=== PATIENT | female | born 1985 | race Caucasian/White ===

== ENCOUNTER 2017-03-23 11:51 | Emergency (ER) | payer MEDICAID ==
[~2017-03-23] VITALS: Ht 170.2 cm; Wt 84.1 kg
[~2017-03-23 11:51] MED LIST: AMOXICILLIN 50500 MG PO; AMOXICILLIN 8751 TAB PO; AMOXICILLIN875 MG PO; CEPHALEXIN500 M1 PO; CLEOCIN HC150 MG/CAP PO; CYMBALTA 60MG60 MG PO; FLEXERIL 1010 MG/TAB PO; FLOMAX 0.40.4 MG/CAP PO; FLONASE NASAL S16 GM NS; GENTAMICIN EYE D5 ML OD; IBU800 M1 PO; IMITREX100 MG PO; LORTAB 5/500 501 TAB PO; LYRICA 150MG C150 MG PO; MACROBID 1100 MG/CAP PO; MOBIC 7.5MG7.5 MG PO; MOTRIN 800800 MG/TAB PO; MULTI VITAMINS1 TAB PO; MULTIPLE VITAMI1 CAP PO; NAPROSYN500 MG PO; NEURONTIN100 MG/CAP PO; NO HOME MEDICATIONS; NORCO 325 MG-51 TAB PO; NORCO 325 MG-7.1 TAB PO; PEN-VEE K250 MG PO; PEN-VEE K500 MG PO; PERCOCET 325 MG1 TA2 PO; PHENERGAN 25 TA25 MG PO; PREDNISONE10 MG PO; PRENATAL1 TA1; PRENATAL1 TA2 PO; SENOKOT S 50 MG1 TAB PO; SKELAXIN 800MG800 MG PO; ZOFRAN ODT4 MG PO
[2017-03-23 11:53] VITALS: BP 147/75; TEMP 97.6
[2017-03-23 14:53] VITALS: PULSE 107
== END 2017-03-23 14:55 | disposition home or self-care (01) ==
LOC: COL.ER 11:51
DX: M79.661 Pain in right lower leg (principal); M79.89 Other specified soft tissue disorders; M25.571 Pain in right ankle and joints of right foot; G43.909 Migraine, unspecified, not intractable, without status migrainosus

== ENCOUNTER 2017-11-24 13:10 | Emergency (ER) | payer MEDICAID ==
[~2017-11-24] VITALS: Ht 170.2 cm; Wt 68.2 kg
[2017-11-24 13:16] VITALS: BP 111/66; TEMP 98.2
[2017-11-24 14:19] LABS: INFLUENZA A NEGATIVE; INFLUENZA B NEGATIVE
[2017-11-24] MEDS ORDERED: ZITHROMAX Z PA250 MG PO (14:47)
[2017-11-24 14:53] VITALS: PULSE 102
[2017-11-24] MEDS ORDERED: PROAIR HFA0.09 MG/AC IH (15:16)
== END 2017-11-24 14:53 | disposition home or self-care (01) ==
LOC: COL.ER 13:10
PROVIDERS: Nurse Practitioner
DX: J18.1 Lobar pneumonia, unspecified organism (principal); F17.210 Nicotine dependence, cigarettes, uncomplicated; J45.909 Unspecified asthma, uncomplicated; M79.7 Fibromyalgia

== ENCOUNTER → 2018-02-11 | Outpatient (CLI) | payer MEDICAID ==
[~2018-02-11] MED LIST changes: +PROAIR HFA0.09 MG/AC IH; +ZITHROMAX Z PA250 MG PO
[2018-02-11 14:13] LABS: BASO # 0.1 (0.0-0.2); BASO % 0.9 % (0.0-2.0); EOS # 0.1 (0.0-0.7); EOS % 1.4 % (0-4.0); LYMPH # 1.6 (1.2-3.4); LYMPH % 24.5 % (20.0-51.0); MEAN CELL VOLUME 85 fl (80.0-100.0); MEAN CORPUSCULAR HGB CONC 31 g/dl (33.0-37.0); MONO # 0.6 (0.1-0.6); PLATELET COUNT 315 K/mm3 (130-400); RED BLOOD COUNT 4.01 M/mm3 (4.10-5.30); REDCELL DISTRIBUTION WIDTH-CV 17.8 % (11.5-14.5)
[2018-02-11 14:17] LABS: HEMATOCRIT 33.9 % (37.0-47.0); HEMOGLOBIN 10.4 g/dl (12.5-16.0); MEAN CORPUSCULAR HEMOGLOBIN 26 pg (27.0-31.0)
[2018-02-11 14:28] LABS: ALBUMIN 3.8 gm/dL (3.5-5.0); BILIRUBIN,TOTAL 0.3 mg/dL (0.0-1.0); CALCIUM 8.7 mg/dL (8.4-10.2); CHOLESTEROL RISK RATIO 3.9; CREATININE, serum 0.64 mg/dL (0.52-1.25); POTASSIUM 4.2 mmol/L (3.4-5.0); TOTAL PROTEIN 6.9 gm/dL (6.4-8.2)
[2018-02-11 14:59] LABS: TSH w REFLEX 1.64 uIU/mL (0.465-4.680)
[2018-02-11 17:31] LABS: HIV 1/2 Antibodies Non-Reactive; HIV-1p24 Antigen Non-Reactive
== END ==
LOC: COL.LAB 11:03
PROVIDERS: Family Medicine
DX: Z01.419 Encounter for gynecological examination (general) (routine) without abnormal findings (principal); Z13.220 Encounter for screening for lipoid disorders; Z13.1 Encounter for screening for diabetes mellitus; L81.8 Other specified disorders of pigmentation

== ENCOUNTER 2021-10-10 07:31 | Emergency (ER) | payer MEDICAID ==
[~2021-10-10] VITALS: Ht 170.2 cm; Wt 88.6 kg
[2021-10-10 07:36] VITALS: TEMP 98
[2021-10-10] MEDS ORDERED: INDERAL 10MG10 MG PO (07:40)
[2021-10-10 08:01] LABS: BASO # 0.1 K/mm3 (0.0-0.2); BASO % 0.7 % (0.0-2.0); EOS # 0.1 K/mm3 (0.0-0.7); EOS % 1.2 % (0-4.0); GRAN # 6.1 K/mm3 (1.4-6.5); GRAN % 73.6 % (42.2-75.2); HEMATOCRIT 36.3 % (37.0-47.0); HEMOGLOBIN 11.4 g/dl (12.5-16.0); LYMPH # 1.5 K/mm3 (1.2-3.4); LYMPH % 17.8 % (20.0-51.0); MEAN CELL VOLUME 84 fl (80.0-100.0); MEAN CORPUSCULAR HEMOGLOBIN 26 pg (27.0-31.0); MEAN CORPUSCULAR HGB CONC 31 g/dl (33.0-37.0); MEAN PLATELET VOLUME 9.2 fl (7.4-10.4); MONO # 0.5 K/mm3 (0.1-0.6); MONO % 6.5 % (1.7-9.3); PLATELET COUNT 366 K/mm3 (130-400); RED BLOOD COUNT 4.32 M/mm3 (4.10-5.30); REDCELL DISTRIBUTION WIDTH-CV 17.1 % (11.5-14.5)
[2021-10-10 08:20] LABS: ALANINE AMINOTRANSFERASE 11 U/L (0-55); ALBUMIN 3.7 gm/dL (3.5-5.0); ALKALINE PHOSPHATASE 66 U/L (40-150); ANION GAP 9 mmol/L (7-16); AST,SGOT 11 U/L (5-34); BILIRUBIN,TOTAL 0.1 mg/dL (0.2-1.2); BLOOD UREA NITROGEN 11 mg/dL (7-19); CALCIUM 9.5 mg/dL (8.4-10.2); CARBON DIOXIDE 22 mmol/L (22-29); CHLORIDE 109 mmol/L (98-107); CREATININE, serum 0.68 mg/dL (0.57-1.11); GLUCOSE 83 mg/dL (70-99); LIPASE 22 U/L (8-78); POTASSIUM 4.4 mmol/L (3.5-4.5); SODIUM 140 mmol/L (136-145); TOTAL PROTEIN 7.3 gm/dL (6.2-8.1)
[2021-10-10 08:26] LABS: TROPONIN-I < 0.010 ng/mL (0.00-0.033)
[2021-10-10 11:52] VITALS: BP 123/71; PULSE 74
== END 2021-10-10 11:54 | disposition home or self-care (01) ==
LOC: COL.ER 07:31
PROVIDERS: Emergency Medicine
DX: K80.20 Calculus of gallbladder without cholecystitis without obstruction (principal); R74.8 Abnormal levels of other serum enzymes; D64.9 Anemia, unspecified; R79.1 Abnormal coagulation profile; J45.909 Unspecified asthma, uncomplicated; F41.9 Anxiety disorder, unspecified; Z32.02 Encounter for pregnancy test, result negative; Z79.899 Other long term (current) drug therapy
CPT/HCPCS: J1885; J2060; J7030; Q9967

== ENCOUNTER 2021-11-03 12:42 | Day surgery (SDC) | payer MEDICAID ==
[~2021-11-03] VITALS: Ht 170.2 cm; Wt 91.5 kg
[~2021-11-03 12:42] MED LIST changes: +INDERAL 10MG10 MG PO
[2021-11-03] MEDS ORDERED: EXCEDRIN1 TAB PO (13:53)
[2021-11-03 13:55] VITALS: BP 21/73; PULSE 98; TEMP 97.5
[2021-11-03 14:05] LABS: BASO # 0.1 K/mm3 (0.0-0.2); BASO % 1.1 % (0.0-2.0); EOS # 0.1 K/mm3 (0.0-0.7); EOS % 1.6 % (0-4.0); GRAN # 3.8 K/mm3 (1.4-6.5); GRAN % 54.9 % (42.2-75.2); HEMATOCRIT 37.2 % (37.0-47.0); HEMOGLOBIN 11.9 g/dl (12.5-16.0); LYMPH # 2.4 K/mm3 (1.2-3.4); LYMPH % 34.1 % (20.0-51.0); MEAN CELL VOLUME 81 fl (80.0-100.0); MEAN CORPUSCULAR HEMOGLOBIN 26 pg (27.0-31.0); MEAN CORPUSCULAR HGB CONC 32 g/dl (33.0-37.0); MEAN PLATELET VOLUME 8.9 fl (7.4-10.4); MONO # 0.6 K/mm3 (0.1-0.6); MONO % 8.2 % (1.7-9.3); PLATELET COUNT 355 K/mm3 (130-400); RED BLOOD COUNT 4.61 M/mm3 (4.10-5.30)
[2021-11-03 14:23] LABS: ALBUMIN 3.9 gm/dL (3.5-5.0); BILIRUBIN,TOTAL 0.3 mg/dL (0.2-1.2); CALCIUM 8.9 mg/dL (8.4-10.2); CREATININE, serum 0.68 mg/dL (0.57-1.11); POTASSIUM 3.8 mmol/L (3.5-4.5); TOTAL PROTEIN 7.3 gm/dL (6.2-8.1)
[2021-11-03] MEDS ORDERED: MOTRIN 600600 MG/TAB PO (16:01)
[2021-11-03] MEDS ORDERED: NORCO 325 MG-51 TAB PO (16:02)
[2021-11-03 16:28] VITALS: BP 130/86; PULSE 93; TEMP 97.5
[2021-11-03 16:43] VITALS: BP 128/75; PULSE 88
[2021-11-03 16:58] VITALS: BP 110/66; PULSE 74
--- NOTE | 2021-11-03 18:13 | NUR ---
162- Pt returned to [facility] via cart, alert and oriented. Postop vitals started and stable. Pt denies nausea, report pain 6/10. Request pain medication. Provided sprite and crackers. Call pt ride home, left VM. 164- Pt alert and oriented. Tolerating food and drink well. Denies nausea. Pain medication given. Provided crackers and pudding. Warm blanket for comfort. 165- Pain reports pain remains 6/10, request medication. Pt up to bathroom, able to void without difficulty. 170- Removed 20G IV from right forearm without complications. Reviewed discharge instructions, education material and f/u appt, pt verbalized understanding and had no questions. Instructed to call office for questions or concerns. Pt reports pain 5/10 and request to be discharged. 181- Patient was unable to contact ride home and had to find another ride. Transfered patient via wheelchair to personal vehicle to be driven home by friend.
== END 2021-11-03 18:13 | disposition home or self-care (01) ==
LOC: SDCO 12:42
PROVIDERS: Surgery
DX: K80.10 Calculus of gallbladder with chronic cholecystitis without obstruction (principal); J45.909 Unspecified asthma, uncomplicated; F41.9 Anxiety disorder, unspecified; F17.210 Nicotine dependence, cigarettes, uncomplicated; D64.9 Anemia, unspecified
CPT/HCPCS: J0690; J1100; J1170; J1885; J2405; J2704; J3010; J7120

== ENCOUNTER 2021-11-21 16:31 | Inpatient (IN) | payer MEDICAID ==
[~2021-11-21] VITALS: Ht 170.2 cm; Wt 102.1 kg
[~2021-11-21 16:31] MED LIST changes: +EXCEDRIN1 TAB PO; +MOTRIN 600600 MG/TAB PO
[2021-11-21 18:14] LABS: MEAN CELL VOLUME 81 fl (80.0-100.0); MEAN CORPUSCULAR HEMOGLOBIN 26 pg (27-31); MEAN CORPUSCULAR HGB CONC 33 g/dl (33.0-37.0); MEAN PLATELET VOLUME 9.4 fl (7.4-10.4); PLATELET COUNT 363 K/mm3 (130-400); RED BLOOD COUNT 4.55 M/mm3 (4.10-5.30); REDCELL DISTRIBUTION WIDTH-CV 18.5 % (11.5-14.5)
[2021-11-21 18:17] LABS: INR 1.8 (0.8-3.0); PROTHROMBIN TIME 20.2 SECONDS (9.7-12.8)
[2021-11-21 18:19] LABS: HEMATOCRIT 36.9 % (37.0-47.0)
[2021-11-21 18:31] LABS: ALANINE AMINOTRANSFERASE 12 U/L (0-55); ALKALINE PHOSPHATASE 65 U/L (40-150); ANION GAP 16 mmol/L (7-16); AST,SGOT 21 U/L (5-34); BILIRUBIN,TOTAL 0.8 mg/dL (0.2-1.2); BLOOD UREA NITROGEN 13 mg/dL (7-19); CALCIUM 8.2 mg/dL (8.4-10.2); CHLORIDE 102 mmol/L (98-107); CREATININE, serum 0.77 mg/dL (0.57-1.11); GLUCOSE 82 mg/dL (70-99); SODIUM 131 mmol/L (136-145); TOTAL PROTEIN 6.9 gm/dL (6.2-8.1)
[2021-11-21 18:36] LABS: LIPASE < 4 U/L (8-78)
[2021-11-21 18:37] LABS: CARBON DIOXIDE 13 mmol/L (22-29)
[2021-11-21 18:45] LABS: TROPONIN-I < 0.010 ng/mL (0.00-0.033)
[2021-11-21 19:43] LABS: BAND 16 % (0-10); LYMPHOCYTE 4 % (20.0-51.0); MICROCYTOSIS 1+; NEUTROPHILS 78 % (42.0-75.2); PLATELET ESTIMATE INCREASED (NORMAL)
[2021-11-21 19:44] LABS: ANISOCYTOSIS 1+
[2021-11-21 23:32] LABS: COLLECTION METHOD CLEAN CATCH
[2021-11-21 23:41] LABS: PH 5 (5-8); SQUAMOUS EPITHELIAL 0-2 /hpf (0-10); URINE APPEARANCE Clear (CLEAR/HAZY); URINE BACTERIA Rare /hpf (NONE SEEN); URINE BILIRUBIN Negative (NEGATIVE); URINE BLOOD 1+ (NEGATIVE); URINE COLOR Yellow (YELLOW); URINE GLUCOSE Negative (NEGATIVE); URINE KETONE Trace (NEGATIVE); URINE LEUKOCYTE ESTERASE Negative (NEGATIVE); URINE NITRATE Negative (NEGATIVE); URINE PROTEIN(semi-quant) Negative (NEGATIVE); URINE RBC 0-2 /hpf (0-2); URINE UROBILINOGEN Negative (NEGATIVE)
[2021-11-21 23:50] LABS: TRICYCLIC ANTIDEPRESS URINE NEGATIVE
--- NOTE | 2021-11-21 23:59 | NUR ---
Vancomycin Initial Dosing Pharmacy Note Ordering provider: Sherice Wakefield MD Indication/duration: Sepsis 2nd to PNA w/ hemoptysis Relevant comorbidities: asthma LABS: WBC = 24.7, Tmax = 101.3 F Recommendation: Will draw troughs and follow levels. Loading dose: 1.25 grams Maintenance dose: 1 gram every 8 hours Trough goal: 15-20 ug/mL
[2021-11-22] VITALS (304 sets, daily range): BP systolic 79–110; BP diastolic 41–74; PULSE 92–101; TEMP 97.6–98.7; O2SAT 62–100
--- NOTE | 2021-11-22 03:44 | NUR ---
This RN notified PA Sarah about soft BP on arm and leg of patient. This RN to bolus rest of LR fluid and then get manual BP and update Sarah of manual BP.
[2021-11-22 06:33] LABS: HEMOGLOBIN 10.1 g/dl (12.5-16.0); MEAN CELL VOLUME 81 fl (80.0-100.0); MEAN CORPUSCULAR HEMOGLOBIN 27 pg (27-31); MEAN CORPUSCULAR HGB CONC 33 g/dl (33.0-37.0); MEAN PLATELET VOLUME 9.5 fl (7.4-10.4); PLATELET COUNT 328 K/mm3 (130-400); REDCELL DISTRIBUTION WIDTH-CV 18.6 % (11.5-14.5)
[2021-11-22 06:42] LABS: HEMATOCRIT 30.7 % (37.0-47.0)
[2021-11-22 06:44] LABS: CALCIUM 7.6 mg/dL (8.4-10.2); CREATININE, serum 0.71 mg/dL (0.57-1.11); POTASSIUM 3.4 mmol/L (3.5-4.5)
--- NOTE | 2021-11-22 07:18 | NUR ---
RECEIVED BEDSIDE SHIFT REPORT FROM STEFANIE CASILLAS. PATIENT WAS ADMITTED AROUND 5:30 THIS MORNING PER REPORT. PATIENT HAS ORDERS FOR PICC LINE PLACEMENT. VSS. RESTING IN BED WITH EYES OPEN. PATIENT IS STANDBY ASSIST AND USES TOILET. ON ANTIBIOTICS.
[2021-11-22 07:22] LABS: BAND 45 % (0-10); LYMPHOCYTE 3 % (20.0-51.0); NEUTROPHILS 51 % (42.0-75.2); PLATELET ESTIMATE NORMAL (NORMAL)
--- NOTE | 2021-11-22 11:45 | NUR ---
PATIENT COMPLAINING OF CHEST PAIN AND TEARFUL. NOTIFIED DR. MOTA WHILE HE WAS ON THE FLOOR. SAID HE WOULD COME AND ASSESS PRIOR TO PLACING ORDERS. WAS NOTIFIED THAT CONSULT TO SURGERY HAD NOT BEEN CALLED. CALLED DR. GILL RIGHT AFTER REGARDING CONSULT.
--- NOTE | 2021-11-22 13:12 | NUR ---
DR. MOTA AT BEDSIDE. DISCUSSED PLAN OF CARE. AGREEABLE TO TRANSFER TODAY. ORDERS RECEIVED.
--- NOTE | 2021-11-22 15:35 | NUR ---
INFORMED BY ERNESTO ALBERTNAVAL [employer] THAT PATIENT HAS A BED ASSIGNMENT.
--- NOTE | 2021-11-22 16:57 | NUR ---
CALLED REPORT TO STEFANIE ALY. WILL BE SENDING PATIENT UPSTAIRS SHORTLY.
[2021-11-23 00:36] VITALS: BP 123/71; PULSE 87; TEMP 97.9
--- NOTE | 2021-11-23 02:24 | NUR ---
PT STATES SHE IS IN PAIN IN UPPER SHOULDER AREA. PT STATES THAT TYLENOL DID NOT DO ANYTHING FOR HER PAIN. PT IS ALERT AND ORIENTATED. PT SKIN IS RADIATING HEAT, NO TEMPERATURE. THIS RN CALLED NATE LUNDBERG FOR PAIN MEDICATION, ORDER FOR RAS WAS GIVEN, CLARIFIED WITH PATIENT TO MAKE SURE THAT SHE IS ABLE TO HANDLE THAT MEDICATION. PT STATED SHE HAS TAKEN IT WITH NO ADVERSE EFFECTS. PT GIVEN WARM BLANKET FOR PICC INSERTION SITE FOR COMFORT.
[2021-11-23 04:25] VITALS: BP 143/77; PULSE 95; TEMP 98.7
--- NOTE | 2021-11-23 06:21 | NUR ---
PT HAD AN OK NIGHT. PT UP THROUGHOUT NIGHT WITH CONTINUING COUGH. PT STATED ROBITUSSIN HAS NOT HELPED COUGH FOR HER. THIS RN GAVE 1 DOSE OF RAS FOR PAIN, PT HAS NOT COMPLAINED OF FURTHER PAIN EXCEPT FOR HEADACHE. TYLENOL GIVEN. ALL MEDICATIONS GIVEN. PT HAS IV FLUIDS RUNNING WITH ANTIBIOTIC WELL. CALL LIGHT IN REACH.
[2021-11-23 07:37] VITALS: BP 123/77; PULSE 88; TEMP 98.1
[2021-11-23 07:42] LABS: MEAN CELL VOLUME 80 fl (80.0-100.0); MEAN CORPUSCULAR HGB CONC 33 g/dl (33.0-37.0); MEAN PLATELET VOLUME 9.3 fl (7.4-10.4); PLATELET COUNT 293 K/mm3 (130-400); REDCELL DISTRIBUTION WIDTH-CV 18.6 % (11.5-14.5)
[2021-11-23 07:46] LABS: HEMATOCRIT 27.2 % (37.0-47.0); HEMOGLOBIN 8.9 g/dl (12.5-16.0); MEAN CORPUSCULAR HEMOGLOBIN 26 pg (27-31)
[2021-11-23 07:53] LABS: CALCIUM 7.9 mg/dL (8.4-10.2); CREATININE, serum 0.56 mg/dL (0.57-1.11); POTASSIUM 3.4 mmol/L (3.5-4.5)
[2021-11-23 08:00] LABS: BAND 22 % (0-10); EOSINOPHIL 2 % (0-4); LYMPHOCYTE 8 % (20.0-51.0); METAMYELOCYTE 2 % (0-0); NEUTROPHILS 64 % (42.0-75.2); PLATELET ESTIMATE NORMAL (NORMAL)
--- NOTE | 2021-11-23 10:39 | NUR ---
THIS PATIENT IS CRYING ABOUT AN UPSET STOMACH, SHE HAS REQUESTED MILK.
[2021-11-23 12:40] VITALS: BP 127/91; PULSE 96; TEMP 98.4
[2021-11-23 16:31] VITALS: BP 121/83; PULSE 105; TEMP 98.2
--- NOTE | 2021-11-23 19:40 | NUR ---
PT HAD UNEVENTFUL DAY. WAS FINALLY ABLE TO GET SOME SLEEP, SO THIS RN LET HER SLEEP WITHOUT INTERUPTION.
[2021-11-23 21:03] VITALS: BP 136/77; PULSE 68; TEMP 99.7
--- NOTE | 2021-11-23 22:50 | NUR ---
Patient assessed around 2100. Alert and oriented x 4, and able to make needs known. Complaining of pain to abdomen, and headache. Given PRN Roxicodone as requested. Patient with low grade temp of 99.7. Has been sweating. Bed linens and gown changed. Oral care provided. Continues on ABX per orders to PICC to RUE. Voices no questions, needs, or concerns at this time. In bed with call light within reach.
[2021-11-24 00:30] VITALS: BP 123/66; PULSE 68; TEMP 98.7
[2021-11-24 04:43] VITALS: BP 108/67; PULSE 98; TEMP 98.4
--- NOTE | 2021-11-24 05:37 | NUR ---
Patient has received PRN Roxicodone and APAP as requested for pain this shift. Patient put back on oxygen at 2 L/min via NC during the night for SOB after excertion, with oxygen saturations in upper 80s on room air. Did not want cough medicine this morning. Voices no further questions, needs, or concerns at this time. Continues on IV ABXs per orders. In bed with call light within reach.
[2021-11-24 06:18] LABS: BASO # 0.1 K/mm3 (0.0-0.2); BASO % 0.6 % (0.0-2.0); EOS # 0.1 K/mm3 (0.0-0.7); GRAN # 6.1 K/mm3 (1.4-6.5); GRAN % 72.9 % (42.2-75.2); LYMPH # 1.4 K/mm3 (1.2-3.4); LYMPH % 16.2 % (20.0-51.0); MEAN CELL VOLUME 82 fl (80.0-100.0); MEAN CORPUSCULAR HGB CONC 32 g/dl (33.0-37.0); MEAN PLATELET VOLUME 9.6 fl (7.4-10.4); MONO # 0.7 K/mm3 (0.1-0.6); MONO % 8.5 % (1.7-9.3); PLATELET COUNT 289 K/mm3 (130-400); RED BLOOD COUNT 3.27 M/mm3 (4.10-5.30); REDCELL DISTRIBUTION WIDTH-CV 18.6 % (11.5-14.5)
[2021-11-24 06:25] LABS: CREATININE, serum 0.55 mg/dL (0.57-1.11); MAGNESIUM 1.6 mg/dL (1.6-2.6); POTASSIUM 3.4 mmol/L (3.5-4.5)
[2021-11-24 06:29] LABS: HEMATOCRIT 26.7 % (37.0-47.0); HEMOGLOBIN 8.5 g/dl (12.5-16.0); MEAN CORPUSCULAR HEMOGLOBIN 26 pg (27-31)
[2021-11-24 08:06] VITALS: BP 107/72; PULSE 88; TEMP 98.2
--- NOTE | 2021-11-24 10:39 | NUR ---
PT RESTING IN BED. MORNING MEDICATIONS GIVEN. SHIFT ASSESSMENT COMPLETED. REPORTS MILD CHEST PAIN, PRN MEDICATION GIVEN. CURRENTLY ON 1.5L NC. PICC LINE FLUSHES AND HAS GOOD BLOOD RETURN. WILL CONTINUE TO MONITOR.
[2021-11-24 12:47] VITALS: BP 134/78; PULSE 94; TEMP 97.9
--- NOTE | 2021-11-24 14:18 | NUR ---
SADIE met with the patient to discuss discharge plan. The patient lives in [place]. She reports that her [id number] daughter lives with her half of the time and her daughter stays with her father the other half. She reports needing occasional assistance with ADLs and has a walking stick. She reports that when she is needing help, her friends help her. The patient does not have a PCP at this time and is open to the hospital getting her set up with one. She receives her medications at [facility] and she reports no difficulties obtaining her meds. The patient does not have a DPOA-HC and she was not interested in completing one at this time. She reports that she is not and that she has two children that are under the age of 18. She states that her [id number]-[id number] daughter lives with her father in [place] and she has not seen her in two years. She reports that her mother, Beena Sharp, is alive and lives in [place]. She did dot have Beena's phone number on her. She would like her friend/neighbor, Kenya Lester (ph#[phone]), as her person to contact. The patient plans on returning home upon discharge. The patient's toxicology came back positive for methamphetamines, amphetamines, and cannabinoids. Per her H&P, she also has a history of IV drug use. SADIE addressed this with the patient. The patient denied both. The patient reports that all she did was share a Delta 8 joint with a friend and that this is legal weed. She states that she just vapes too. SADIE made a CPS report. Intake ID#[id number]. *Discharge plan: home*
[2021-11-24 16:40] VITALS: BP 129/60; PULSE 71; TEMP 98.4
[2021-11-24 20:00] VITALS: BP 136/82; PULSE 98; TEMP 99.7
[2021-11-25 00:32] VITALS: BP 150/86; PULSE 87; TEMP 99.3
[2021-11-25 03:52] VITALS: BP 143/93; PULSE 89; TEMP 98.4
[2021-11-25 04:34] LABS: MEAN CELL VOLUME 79 fl (80.0-100.0); MEAN CORPUSCULAR HGB CONC 33 g/dl (33.0-37.0); PLATELET COUNT 285 K/mm3 (130-400); RED BLOOD COUNT 3.76 M/mm3 (4.10-5.30)
[2021-11-25 04:52] LABS: HEMATOCRIT 29.8 % (37.0-47.0); HEMOGLOBIN 9.7 g/dl (12.5-16.0); MEAN CORPUSCULAR HEMOGLOBIN 26 pg (27-31)
[2021-11-25 05:03] LABS: CALCIUM 7.8 mg/dL (8.4-10.2); CREATININE, serum 0.61 mg/dL (0.57-1.11); MAGNESIUM 1.7 mg/dL (1.6-2.6); POTASSIUM 3.5 mmol/L (3.5-4.5)
[2021-11-25 06:05] LABS: BAND 5 % (0-10); EOSINOPHIL 1 % (0-4); LYMPHOCYTE 27 % (20.0-51.0); NEUTROPHILS 54 % (42.0-75.2)
[2021-11-25 06:06] LABS: ANISOCYTOSIS 1+
[2021-11-25 07:12] VITALS: BP 138/74; PULSE 87; TEMP 97.6
--- NOTE | 2021-11-25 08:53 | NUR ---
Patient resting in bed. Her cough is persistant. Her main complaint of pain is due to cough. Roxicodone per orders and request. Picc to Rue flushed, blood returned. K+ per protocol. Patient not yet able to tolerate her breakfast. Will monitor.
[2021-11-25] MEDS ORDERED: AMOXICILLIN 8751 TAB PO (09:36)
[2021-11-25] MEDS ORDERED: ROBITUSSIN DM 105 ML PO (09:38)
[2021-11-25 12:00] VITALS: BP 120/87; PULSE 89; TEMP 97.9
--- NOTE | 2021-11-25 12:25 | NUR ---
Patient ready for discharge. Her ride called that she is here. Patient Picc line was removed per orders & she tolerated well. We reviewed Picc line discharge instructions. Removed per policy. We reviewed all discharge instructions. Patient aware of scripts send [facility]. We reviewed home med list. Phone number provided for patient to call to set up a primary care appt. on sunday. I attempted to call, but offices are closed today. Patient wheeled out with all belongigns. Her friend Kenya taking her home.
== END 2021-11-25 12:49 | disposition home or self-care (01) | DRG 871 ==
LOC: COL.ER 16:31 → MEDICAL 21:33 → ICU 21:33 → MEDICAL 11-22 21:48 → SURG 11-24 09:25
PROVIDERS: Internal Medicine; Personal Emergency Response Attendant; Student in an Organized Health Care Education/Training Program; ADMIT Student in an Organized Health Care Education/Training Program
PROC: 02HV33Z Insertion of Infusion Device into Superior Vena Cava, Percutaneous Approach (ICD-10-PCS; principal; 2021-11-22)
DX: A41.9 Sepsis, unspecified organism (principal); J18.9 Pneumonia, unspecified organism; J96.01 Acute respiratory failure with hypoxia; K91.873 Postprocedural seroma of a digestive system organ or structure following other procedure; J45.909 Unspecified asthma, uncomplicated; R65.20 Severe sepsis without septic shock; M79.7 Fibromyalgia; F41.9 Anxiety disorder, unspecified; F17.210 Nicotine dependence, cigarettes, uncomplicated; F15.10 Other stimulant abuse, uncomplicated; F12.10 Cannabis abuse, uncomplicated; B97.89 Other viral agents as the cause of diseases classified elsewhere; Y83.8 Other surgical procedures as the cause of abnormal reaction of the patient, or of later complication, without mention of misadventure at the time of the procedure; B95.3 Streptococcus pneumoniae as the cause of diseases classified elsewhere; E87.6 Hypokalemia; E83.42 Hypomagnesemia; Z20.822 Contact with and (suspected) exposure to COVID-19
CPT/HCPCS: 99223-AI; 99232-AI; 99233-AI; 99239; C1751; J1650; J1790; J1956; J2060; J2405; J2543; J3010; J3370; J3475; J7030; J7050; J7120; Q9967

== ENCOUNTER 2023-12-06 08:24 | Emergency (ER) | payer SELFPAY ==
[~2023-12-06] VITALS: Ht 170.2 cm; Wt 100.9 kg
[~2023-12-06 08:24] MED LIST changes: +ROBITUSSIN DM 105 ML PO
[2023-12-06 08:28] VITALS: TEMP 97.9
[2023-12-06 09:59] VITALS: BP 113/83
[2023-12-06] MEDS ORDERED: ZITHROMAX Z PA250 MG PO (10:14)
[2023-12-06] MEDS ORDERED: AMOXICILLIN 8751 TAB PO (10:14)
[2023-12-06 10:36] VITALS: PULSE 99
== END 2023-12-06 10:36 | disposition home or self-care (01) ==
LOC: COL.ER 08:24
DX: J18.9 Pneumonia, unspecified organism (principal); F17.210 Nicotine dependence, cigarettes, uncomplicated; F17.290 Nicotine dependence, other tobacco product, uncomplicated